=== PATIENT | male | born 2000 | race Hispanic/Latino ===

== ENCOUNTER 2025-07-28 08:38 | Day surgery (SDC) | payer OTHER ==
[2025-07-27 14:33] VITALS: BMI 41.0
[2025-07-28] MEDS ORDERED: AFRIN NASAL MIST 15 ML BOT ONE (09:28)
[2025-07-28] MEDS ORDERED: Lidocaine 1% PF 5 ML VIAL ONE (09:31)
[2025-07-28] MEDS ORDERED: PROPOFOL 20 ML ONE (09:31)
[2025-07-28] MEDS ORDERED: Rocuronium Bromide 10 MG/ML (10ML VIAL) ONE (09:32)
[2025-07-28] MEDS ORDERED: Ondansetron PF 4 MG/2 ML Vial ONE ×2 (09:40→10:55)
[2025-07-28] MEDS ORDERED: SUGAMMADEX SODIUM 200 MG/2 ML VIAL ONE ×2 (09:40→10:55)
[2025-07-28] MEDS ORDERED: Lidocaine 1% w/Epinephrine 1:200K 30 ML VIAL ONE (10:03)
[2025-07-28] MEDS ORDERED: Bacitracin 1 PK ONE (10:03)
[2025-07-28] MEDS ORDERED: Oxymetazoline HCl 0.05% (15 ML) ONE (10:34)
[2025-07-28] MEDS ORDERED: oxyCODONE 5 MG TAB ONE (13:02)
== END 2025-07-28 14:55 | disposition home or self-care (01) ==
LOC: CSHSDC 08:38
PROVIDERS: ATTEND Otolaryngology Plastic Surgery within the Head & Neck
PROC: 09SM4ZZ Reposition Nasal Septum, Percutaneous Endoscopic Approach (ICD-10-PCS; principal; 2025-07-28)
PROC: 0NSBXZZ Reposition Nasal Bone, External Approach (ICD-10-PCS; principal; 2025-07-28)
PROC: 095L8ZZ Destruction of Nasal Turbinate, Via Natural or Artificial Opening Endoscopic (ICD-10-PCS; principal; 2025-07-28)
DX: S02.2XXA Fracture of nasal bones, initial encounter for closed fracture (principal); S02.31XA Fracture of orbital floor, right side, initial encounter for closed fracture; J34.2 Deviated nasal septum; J34.3 Hypertrophy of nasal turbinates; I10 Essential (primary) hypertension; G47.33 Obstructive sleep apnea (adult) (pediatric); E66.9 Obesity, unspecified; Z68.41 Body mass index [BMI] 40.0-44.9, adult; Z88.8 Allergy status to other drugs, medicaments and biological substances; Z88.6 Allergy status to analgesic agent; V49.9XXA Car occupant (driver) (passenger) injured in unspecified traffic accident, initial encounter
CPT/HCPCS: J1100; J2250; J2704